=== PATIENT | female | born 1945 | race African-American/Black ===

== ENCOUNTER 2019-02-27 08:31 | Emergency (ER) | payer MEDICARE, MEDICAID ==
[~2019-02-27] VITALS: Ht 165.1 cm; Wt 58.0 kg
[~2019-02-27 08:31] MED LIST: ALLO100T PO; AMLO1CAP2 PO; ASPI-1393 PO; COLC0.6T66 PO; FISH PO; FOLI-43 PO; LORA-250 PO; MECL12.584 PO; SUCR1TAB PO; VIC PO
[2019-02-27 09:24] LABS: BASOPHILS % 1.2 % (0.0-2.0); EOSINOPHILS % 3.2 % (0.0-5.0); HEMATOCRIT. 40.2 % (36.0-48.0); HEMOGLOBIN. 13.3 g/dL (12.0-16.0); LYMPHOCYTES % 13.7 % (20.0-50.0); MEAN CORPUSCULAR HEMOGLOBIN 30.9 pg (28.0-32.0); MEAN CORPUSCULAR VOLUME 93.2 fL (81.0-99.0); MEAN PLATELET VOLUME 7.1 fl (7.4-10.4); MONOCYTES % 4.5 % (2.0-8.0); NEUTROPHILS % 77.4 % (40.0-76.0); PLATELET 305 x1000/uL (130-400); RED BLOOD CELL COUNT 4.32 mill/uL (4.2-5.4); RED CELL DISTRIBUTION WIDTH 14.2 % (11.6-14.6)
[2019-02-27 09:25] LABS: CHLORIDE 113 mEq/L (98-107)
[2019-02-27] MEDS ORDERED: LORAZEPAM 1MG TABLET PO ONE (10:00)
[2019-02-27 12:00] VITALS: BP 117/80
== END 2019-02-27 12:00 | disposition home or self-care (01) ==
LOC: ER 08:31
DX: B34.9 Viral infection, unspecified (principal); F41.9 Anxiety disorder, unspecified; J44.9 Chronic obstructive pulmonary disease, unspecified; I10 Essential (primary) hypertension; K21.9 Gastro-esophageal reflux disease without esophagitis; D64.9 Anemia, unspecified; Z79.899 Other long term (current) drug therapy; Z88.6 Allergy status to analgesic agent; Z79.82 Long term (current) use of aspirin
CPT/HCPCS: 36415; 71045; 83880; 84484; 93005; 99284

== ENCOUNTER → 2019-08-28 | Day surgery (SDC) | payer MEDICARE, MEDICAID ==
[~2019-08-28] VITALS: Ht 160 cm; Wt 49.9 kg
[~2019-08-28] MED LIST changes: +ALPR2TAB2 PO; +AMYL1CAP61 PO; -ASPI-1393 PO; +ASPI-1497 PO; +BUPIVACAINE HCL 0.5% (5MG/ML) 50ML ONE; -COLC0.6T66 PO; +DEXL60CA3 PO; -FISH PO; +HYDR-3280 PO; +INDOCYANINE GREEN 25 MG VIAL IV ONE; +LACTATED RINGERS 1,000 ML IV SCH; +LEVOFLOXACIN 500MG PREMIX 0 ML IV ONE; +LINA145C PO; -LORA-250 PO; +MECL-183 PO; -MECL12.584 PO; +METRONIDAZOLE 500 MG PREMIX 0 ML IV ONE; +ONDANSETRON HCL 4MG/2ML INJ IV ONE; -SUCR1TAB PO; -VIC PO
== END | disposition home or self-care (01) ==
LOC: OR 05:25
PROVIDERS: ATTEND Surgery
DX: J44.9 Chronic obstructive pulmonary disease, unspecified (principal); Z53.8 Procedure and treatment not carried out for other reasons; K58.9 Irritable bowel syndrome, unspecified; E78.00 Pure hypercholesterolemia, unspecified; F41.9 Anxiety disorder, unspecified; K21.9 Gastro-esophageal reflux disease without esophagitis; I11.0 Hypertensive heart disease with heart failure; I50.9 Heart failure, unspecified; E11.9 Type 2 diabetes mellitus without complications; Z79.899 Other long term (current) drug therapy; Z85.9 Personal history of malignant neoplasm, unspecified; Z88.5 Allergy status to narcotic agent; Z88.8 Allergy status to other drugs, medicaments and biological substances; Z79.82 Long term (current) use of aspirin; Z90.710 Acquired absence of both cervix and uterus; Z98.890 Other specified postprocedural states; Z72.89 Other problems related to lifestyle
CPT/HCPCS: 36415; 80051; 86850; 86900; 86901; J2405; J1956; J3490; Q9957

== ENCOUNTER → 2019-10-20 | Outpatient (CLI) | payer MEDICARE, MEDICAID ==
[~2019-10-20] MED LIST changes: -BUPIVACAINE HCL 0.5% (5MG/ML) 50ML ONE; -INDOCYANINE GREEN 25 MG VIAL IV ONE; -LACTATED RINGERS 1,000 ML IV SCH; -LEVOFLOXACIN 500MG PREMIX 0 ML IV ONE; -METRONIDAZOLE 500 MG PREMIX 0 ML IV ONE; -ONDANSETRON HCL 4MG/2ML INJ IV ONE; +UMEC1DIS IH
== END | disposition home or self-care (01) ==
LOC: LAB 11:57
PROVIDERS: ATTEND Surgery
DX: Z01.818 Encounter for other preprocedural examination (principal); Z11.59 Encounter for screening for other viral diseases
CPT/HCPCS: U0003-CS

== ENCOUNTER 2019-10-24 05:38 | Inpatient (IN) | payer MEDICARE, MEDICAID ==
[~2019-10-24] VITALS: Ht 160 cm; Wt 49.0 kg
[~2019-10-24 05:38] MED LIST changes: -UMEC1DIS IH
[2019-10-24] MEDS ORDERED: INDOCYANINE GREEN 25 MG VIAL IV ONE (06:22)
[2019-10-24] MEDS ORDERED: LEVOFLOXACIN 500MG PREMIX 100 ML IV ONE (06:23)
[2019-10-24] MEDS ORDERED: BUPIVACAINE HCL 0.5% (5MG/ML) 50ML ONE (06:23)
[2019-10-24] MEDS ORDERED: METRONIDAZOLE 500 MG PREMIX 100 ML IV ONE (06:23)
[2019-10-24] MEDS ORDERED: BUPIVACAINE HCL/PF 0.5% (5MG/ML) 10ML ONE (06:23)
[2019-10-24] MEDS ORDERED: SKIN ADHESIVE 0.7 GM EA TOP ONE (06:29)
[2019-10-24] MEDS ORDERED: LACTATED RINGERS 1,000 ML IV SCH (06:30)
[2019-10-24] MEDS ORDERED: FENTANYL CITRATE/PF 50MCG/ML 2ML VIAL ONE (07:14)
[2019-10-24] MEDS ORDERED: MIDAZOLAM HCL 2 MG/2 ML VIAL ONE (07:15)
[2019-10-24] MEDS ORDERED: LIDOCAINE HCL/PF 1% 10 MG/ML 5ML VIAL ONE (07:15)
[2019-10-24] MEDS ORDERED: PROPOFOL 200MG/20ML VIAL IV ONE (07:15)
[2019-10-24] MEDS ORDERED: ROCURONIUM BROMIDE 10MG/ML VIAL 5ML IV ONE ×2 (07:15→09:08)
[2019-10-24] MEDS ORDERED: DEXT 5%/0.45% NACL KCL 20MEQ/L 1,000 ML IV SCH (07:39)
[2019-10-24] MEDS ORDERED: UMEC1DIS IH (07:43)
[2019-10-24] MEDS ORDERED: METRONIDAZOLE 500 MG PREMIX 100 ML IV SCH (07:45)
[2019-10-24] MEDS ORDERED: MORPHINE SULFATE 4 MG/ML CPJ (NOT FOR IM USE) IV PRN (07:45)
[2019-10-24] MEDS ORDERED: MORPHINE SULFATE 2 MG/ML CPJ (NOT FOR IM USE) IV PRN (07:45)
[2019-10-24] MEDS ORDERED: ACETAMINOPHEN 650MG SUPP PR PRN ×2 (07:45)
[2019-10-24] MEDS ORDERED: LEVOFLOXACIN 500MG PREMIX 100 ML IV SCH (07:45)
[2019-10-24] MEDS ORDERED: ONDANSETRON HCL 4MG/2ML INJ IV PRN ×2 (07:45→11:00)
[2019-10-24] MEDS ORDERED: HYDROMORPHONE HCL/PF 2MG/ML (OR) ONE (08:10)
[2019-10-24] MEDS ORDERED: FAMOTIDINE 20MG/2ML VIAL IV SCH (09:00)
[2019-10-24] MEDS ORDERED: NEOSTIGMINE METHYLSULFATE 1MG/ML 10 ML VIAL ONE (09:24)
[2019-10-24] MEDS ORDERED: GLYCOPYRROLATE 0.2 MG/ML 2ML VIAL ONE (09:24)
[2019-10-24] MEDS ORDERED: DIPHENHYDRAMINE INJ IV PRN (10:15)
[2019-10-24] MEDS ORDERED: NALOXONE INJ IV PRN (10:15)
[2019-10-24] MEDS: ONDANSETRON INJ IV PRN ×2 (10:22→15:50)
[2019-10-24] MEDS: BUPIVACAINE HCL 0.5% 290 ML in ON-Q PM015 DRUG DELIV DEVICE 1 EA IR SCH (10:30)
[2019-10-24] MEDS: HYDROMORPHONE PCA 10MG/50ML IV PRN (10:59)
[2019-10-24] MEDS ORDERED: FENTANYL CITRATE/PF 50MCG/ML 2ML VIAL IV PRN (11:00)
[2019-10-24 12:00] VITALS: BP 128/71
[2019-10-24 12:10] VITALS: BP 128/71
[2019-10-24] MEDS: METRONIDAZOLE 500 MG PREMIX 100 ML IV SCH ×2 (13:48→21:48)
[2019-10-24] MEDS: DEXT 5%/0.45% NACL KCL 20MEQ/L 1,000 ML IV SCH (14:09)
[2019-10-24 16:00] VITALS: BP 148/81
[2019-10-24] MEDS ORDERED: PNEUMOCOCCAL 23-VAL P-SAC VAC 0.5 ML IM ONE (16:00)
[2019-10-24] MEDS ORDERED: HYDRALAZINE 10 MG in SODIUM CHLORIDE 0.9% 49.5 ML IV PRN (16:30)
[2019-10-24 17:17] LABS: CLARITY URINE CLEAR (CLEAR); COLOR URINE YELLOW (YELLOW); KETONES URINE TRACE (NEGATIVE); LEUKOCYTE ESTERASE URINE NEGATIVE (NEGATIVE); NITRITE URINE NEGATIVE (NEGATIVE); OCCULT BLOOD URINE 3+ (NEGATIVE); PROTEIN URINE TRACE (NEGATIVE); SPECIFIC GRAVITY URINE 1.014 (1.005-1.030); UROBILINOGEN URINE 0.2 E.U./dL (0.2-1.0)
[2019-10-24 18:10] VITALS: BP 148/81
[2019-10-24 20:00] VITALS: BP 124/70
[2019-10-24] MEDS ORDERED: LORAZEPAM 2MG/ML CPJ IV PRN (21:00)
[2019-10-25] VITALS: BP 138/63
[2019-10-25] MEDS: DEXT 5%/0.45% NACL KCL 20MEQ/L 1,000 ML IV SCH ×3 (00:32→21:12)
[2019-10-25 04:00] VITALS: BP 136/74
[2019-10-25] MEDS: METRONIDAZOLE 500 MG PREMIX 100 ML IV SCH (05:15)
[2019-10-25 05:18] LABS: HEMATOCRIT 30.9 % (36.0-48.0); HEMOGLOBIN 10.7 g/dL (12.0-16.0); MEAN CORPUSCULAR HEMOGLOBIN 31.1 pg (28.0-32.0); MEAN CORPUSCULAR VOLUME 90.1 fL (81.0-99.0); PLATELET 221 x1000/uL (130-400); RED BLOOD CELL COUNT 3.43 mill/uL (4.2-5.4); RED CELL DISTRIBUTION WIDTH 14.5 % (11.6-14.6)
[2019-10-25 05:26] LABS: CHLORIDE 109 mEq/L (98-107)
[2019-10-25] MEDS ORDERED: LEVOFLOXACIN 500MG PREMIX 100 ML IV SCH (06:00)
[2019-10-25 08:00] VITALS: BP 125/59
[2019-10-25] MEDS: FAMOTIDINE 20MG/2ML VIAL IV SCH (08:25)
[2019-10-25] MEDS: BUPIVACAINE HCL 0.5% 290 ML in ON-Q PM015 DRUG DELIV DEVICE 1 EA IR SCH (09:34)
[2019-10-25] MEDS: ALBUTEROL (0.083%) 2.5MG/3ML NEB HHN PRN ×2 (09:54→14:32)
[2019-10-25] MEDS: LORAZEPAM 2MG/ML CPJ IV PRN ×3 (10:31→22:51)
[2019-10-25 12:00] VITALS: BP 130/65
[2019-10-25 16:00] VITALS: BP 135/75
[2019-10-25 20:00] VITALS: BP 160/78
[2019-10-25] MEDS: IPRATROPIUM/ALBUTEROL 0.5-3(2.5)MG/3ML NEB HHN SCH (21:52)
[2019-10-26] VITALS (7 sets, daily range): BP systolic 139–157; BP diastolic 49–81
[2019-10-26] MEDS: IPRATROPIUM/ALBUTEROL 0.5-3(2.5)MG/3ML NEB HHN SCH ×4 (00:50→20:48)
[2019-10-26] MEDS: DEXT 5%/0.45% NACL KCL 20MEQ/L 1,000 ML IV SCH ×2 (06:06→17:00)
[2019-10-26] MEDS: LORAZEPAM 2MG/ML CPJ IV PRN ×2 (06:10→18:09)
[2019-10-26] MEDS: FAMOTIDINE 20MG/2ML VIAL IV SCH (09:25)
[2019-10-26] MEDS: BUPIVACAINE HCL 0.5% 290 ML in ON-Q PM015 DRUG DELIV DEVICE 1 EA IR SCH (09:30)
[2019-10-27] VITALS: BP 127/70
[2019-10-27] MEDS: LORAZEPAM 2MG/ML CPJ IV PRN ×4 (00:26→18:28)
[2019-10-27] MEDS: IPRATROPIUM/ALBUTEROL 0.5-3(2.5)MG/3ML NEB HHN SCH ×4 (02:16→21:39)
[2019-10-27 04:00] VITALS: BP 132/75
[2019-10-27] MEDS: DEXT 5%/0.45% NACL KCL 20MEQ/L 1,000 ML IV SCH ×2 (04:33→17:38)
[2019-10-27 08:00] VITALS: BP 147/88
[2019-10-27] MEDS: FAMOTIDINE 20MG/2ML VIAL IV SCH (09:37)
[2019-10-27 11:15] LABS: HEMATOCRIT. 34.2 % (36.0-48.0); HEMOGLOBIN. 11.8 g/dL (12.0-16.0); MEAN CORPUSCULAR HEMOGLOBIN 31.2 pg (28.0-32.0); MEAN CORPUSCULAR VOLUME 90.5 fL (81.0-99.0); MEAN PLATELET VOLUME 6.7 fl (7.4-10.4); PLATELET 267 x1000/uL (130-400); RED BLOOD CELL COUNT 3.78 mill/uL (4.2-5.4); RED CELL DISTRIBUTION WIDTH 14.3 % (11.6-14.6)
[2019-10-27 11:24] LABS: CHLORIDE 104 mEq/L (98-107)
[2019-10-27 12:00] VITALS: BP 164/91
[2019-10-27 14:23] LABS: PLATELET ESTIMATE NORMAL
[2019-10-27 16:00] VITALS: BP 138/83
[2019-10-27] MEDS ORDERED: PANTOPRAZOLE SODIUM 40 MG/VIAL IV NR (19:00)
[2019-10-27 20:00] VITALS: BP 153/94
[2019-10-28] VITALS: BP 141/87
[2019-10-28] MEDS: DEXT 5%/0.45% NACL KCL 20MEQ/L 1,000 ML IV SCH ×2 (01:23→11:43)
[2019-10-28 04:00] VITALS: BP_SYST 132; BP_SYST 99; BP_DIAS 50; BP_DIAS 84
[2019-10-28] MEDS: FAMOTIDINE 20MG/2ML VIAL IV SCH (08:25)
[2019-10-28] MEDS: IPRATROPIUM/ALBUTEROL 0.5-3(2.5)MG/3ML NEB HHN SCH ×2 (09:35→21:36)
[2019-10-28 12:00] VITALS: BP 150/91
[2019-10-28] MEDS ORDERED: POLYETHYLENE GLYCOL 3350 (17GM) 1 DOSE PACK PO SCH (13:15)
[2019-10-28 16:00] VITALS: BP 130/75
[2019-10-28 20:00] VITALS: BP 110/64
[2019-10-28] MEDS: HYDROMORPHONE PCA 10MG/50ML IV PRN (23:05)
[2019-10-29] VITALS: BP 113/58
[2019-10-29] MEDS: IPRATROPIUM/ALBUTEROL 0.5-3(2.5)MG/3ML NEB HHN SCH ×4 (02:39→20:55)
[2019-10-29 04:00] VITALS: BP 119/64
[2019-10-29] MEDS: DEXT 5%/0.45% NACL KCL 20MEQ/L 1,000 ML IV SCH ×2 (05:34→11:24)
[2019-10-29 08:00] VITALS: BP 115/69
[2019-10-29] MEDS ORDERED: BISACODYL 10MG SUPP PR NR ×2 (08:00→14:00)
[2019-10-29] MEDS: FAMOTIDINE 20MG/2ML VIAL IV SCH (09:14)
[2019-10-29 12:00] VITALS: BP 110/61
[2019-10-29 12:03] LABS: HEMATOCRIT 29.4 % (36.0-48.0)
[2019-10-29 16:00] VITALS: BP 125/62
[2019-10-29 20:00] VITALS: BP 121/64
[2019-10-29] MEDS ORDERED: LORAZEPAM 0.5MG TABLET PO PRN (21:00)
[2019-10-30] VITALS: BP 131/64
[2019-10-30] MEDS: DEXT 5%/0.45% NACL KCL 20MEQ/L 1,000 ML IV SCH ×2 (01:13→17:09)
[2019-10-30] MEDS: IPRATROPIUM/ALBUTEROL 0.5-3(2.5)MG/3ML NEB HHN SCH ×4 (01:25→22:12)
[2019-10-30 04:00] VITALS: BP 109/67
[2019-10-30 08:00] VITALS: BP 126/74
[2019-10-30] MEDS: FAMOTIDINE 20MG/2ML VIAL IV SCH (08:44)
[2019-10-30 12:00] VITALS: BP 114/68
[2019-10-30 20:00] VITALS: BP 127/73
[2019-10-31] VITALS: BP 128/79
[2019-10-31 04:00] VITALS: BP 123/70
[2019-10-31] MEDS: DEXT 5%/0.45% NACL KCL 20MEQ/L 1,000 ML IV SCH ×3 (04:07→23:23)
[2019-10-31 08:00] VITALS: BP 118/70
[2019-10-31] MEDS: IPRATROPIUM/ALBUTEROL 0.5-3(2.5)MG/3ML NEB HHN SCH ×3 (08:49→21:27)
[2019-10-31] MEDS: FAMOTIDINE 20MG/2ML VIAL IV SCH (10:12)
[2019-10-31 12:00] VITALS: BP 141/80
[2019-10-31 16:00] VITALS: BP 118/67
[2019-10-31 20:00] VITALS: BP 114/69
[2019-11-01] VITALS: BP 114/53
[2019-11-01] MEDS: IPRATROPIUM/ALBUTEROL 0.5-3(2.5)MG/3ML NEB HHN SCH ×3 (01:31→15:25)
[2019-11-01 04:00] VITALS: BP 107/53
[2019-11-01 08:00] VITALS: BP 129/76
[2019-11-01] MEDS: FAMOTIDINE 20MG/2ML VIAL IV SCH (08:23)
[2019-11-01 12:00] VITALS: BP 103/75
[2019-11-01 15:39] VITALS: BP 103/75
== END 2019-11-01 16:50 | disposition home health service (06) | DRG 330 ==
LOC: OR 05:38 → 6EST 05:39
PROVIDERS: ADMIT Surgery; ATTEND Surgery
PROC: 0DB80ZZ Excision of Small Intestine, Open Approach (ICD-10-PCS; principal; 2019-10-24)
PROC: 0DQP0ZZ Repair Rectum, Open Approach (ICD-10-PCS; 2019-10-24)
PROC: 8E0W4CZ Robotic Assisted Procedure of Trunk Region, Percutaneous Endoscopic Approach (ICD-10-PCS; 2019-10-24)
DX: K62.3 Rectal prolapse (principal); E44.1 Mild protein-calorie malnutrition; K56.7 Ileus, unspecified; Z68.1 Body mass index [BMI] 19.9 or less, adult; K55.9 Vascular disorder of intestine, unspecified; K66.0 Peritoneal adhesions (postprocedural) (postinfection); I10 Essential (primary) hypertension; F41.9 Anxiety disorder, unspecified; J44.9 Chronic obstructive pulmonary disease, unspecified; M10.9 Gout, unspecified; J30.9 Allergic rhinitis, unspecified; M54.5 Low back pain; G89.29 Other chronic pain; M54.2 Cervicalgia; M54.9 Dorsalgia, unspecified; R31.9 Hematuria, unspecified; Z53.31 Laparoscopic surgical procedure converted to open procedure; Z87.891 Personal history of nicotine dependence; Z82.49 Family history of ischemic heart disease and other diseases of the circulatory system; Z81.8 Family history of other mental and behavioral disorders; Z88.5 Allergy status to narcotic agent; Z91.011 Allergy to milk products
CPT/HCPCS: 36415; 80048; 80053; 81003; 85014; 85018; 85025; 85027; 86850; 86900; 88307; 97116; 97162; 97530; C9113; J0360; J1170; J1956; J2060; J2250; J2270; J2405; J2704; J2710; J3010; J3490; Q9957

== ENCOUNTER 2019-11-05 11:27 | Emergency (ER) | payer MEDICARE, MEDICAID ==
[~2019-11-05] VITALS: Ht 160 cm; Wt 57.0 kg
[~2019-11-05 11:27] MED LIST changes: -ASPI-1497 PO; +UMEC1DIS IH
[2019-11-05] MEDS ORDERED: ONDANSETRON HCL 4MG/2ML INJ IV STA (12:29)
[2019-11-05] MEDS ORDERED: SODIUM CHLORIDE 0.9% 1,000 ML IV ONE ×2 (12:29→15:20)
[2019-11-05] MEDS ORDERED: ACETAMINOPHEN 325MG TABLET PO ONE (12:30)
[2019-11-05 12:39] LABS: HEMATOCRIT. 26.8 % (36.0-48.0); HEMOGLOBIN. 9.2 g/dL (12.0-16.0); MEAN CORPUSCULAR HEMOGLOBIN 31.1 pg (28.0-32.0); MEAN CORPUSCULAR VOLUME 90.5 fL (81.0-99.0); PLATELET 538 x1000/uL (130-400); RED BLOOD CELL COUNT 2.96 mill/uL (4.2-5.4); RED CELL DISTRIBUTION WIDTH 14.2 % (11.6-14.6)
[2019-11-05 12:42] LABS: CHLORIDE 103 mEq/L (98-107)
[2019-11-05 12:46] LABS: CLARITY URINE CLEAR (CLEAR); COLOR URINE YELLOW (YELLOW); KETONES URINE NEGATIVE (NEGATIVE); LEUKOCYTE ESTERASE URINE TRACE (NEGATIVE); NITRITE URINE NEGATIVE (NEGATIVE); OCCULT BLOOD URINE NEGATIVE (NEGATIVE); PH URINE 5.5 (4.5-8.0); PROTEIN URINE NEGATIVE (NEGATIVE); SPECIFIC GRAVITY URINE 1.008 (1.005-1.030); UROBILINOGEN URINE 0.2 E.U./dL (0.2-1.0)
[2019-11-05 12:52] LABS: INR 1.1; PARTIAL THROMBOPLASTIN TIME 26.8 sec (23.4-31.0)
[2019-11-05 13:18] LABS: PLATELET ESTIMATE INCREASED
[2019-11-05] MEDS ORDERED: IOHEXOL-300 100 ML BOTTLE ONE (13:36)
[2019-11-05] MEDS ORDERED: LEVOFLOXACIN 250MG TABLET PO ONE (14:30)
[2019-11-05 15:58] VITALS: BP 111/46
== END 2019-11-05 16:18 | disposition home or self-care (01) ==
LOC: ER 11:39
DX: R10.9 Unspecified abdominal pain (principal); D64.9 Anemia, unspecified; F41.9 Anxiety disorder, unspecified; J44.9 Chronic obstructive pulmonary disease, unspecified; K21.9 Gastro-esophageal reflux disease without esophagitis; I10 Essential (primary) hypertension; Z98.890 Other specified postprocedural states; Z79.899 Other long term (current) drug therapy
CPT/HCPCS: 36415; 71045; 74177; 80053; 81003; 83690; 85025; 85610; 85730; 86850; 86900; 86901; 93005; 96374; 99285; J2405; J7030; Q9967

== ENCOUNTER 2019-11-13 17:53 | Emergency (ER) | payer MEDICARE, MEDICAID ==
[~2019-11-13] VITALS: Ht 162.6 cm; Wt 60.0 kg
[2019-11-13 21:53] LABS: HEMATOCRIT. 27.9 % (36.0-48.0); HEMOGLOBIN. 9.1 g/dL (12.0-16.0); MEAN CORPUSCULAR HEMOGLOBIN 29.1 pg (28.0-32.0); MEAN PLATELET VOLUME 6.4 fl (7.4-10.4); PLATELET 467 x1000/uL (130-400); RED BLOOD CELL COUNT 3.13 mill/uL (4.2-5.4); RED CELL DISTRIBUTION WIDTH 15.1 % (11.6-14.6)
[2019-11-13 21:56] LABS: CHLORIDE 105 mEq/L (98-107)
[2019-11-13 21:59] LABS: INR 1.2; PROTHROMBIN TIME 12.7 sec (9.6-11.0)
[2019-11-13 22:16] LABS: PLATELET ESTIMATE SLIGHTLY INCREASED
[2019-11-13] MEDS ORDERED: FENTANYL CITRATE/PF 50MCG/ML 2ML VIAL IV ONE (22:30)
[2019-11-14] MEDS ORDERED: LORAZEPAM 0.5MG TABLET PO ONE (00:15)
[2019-11-14 00:49] VITALS: BP 112/62
== END 2019-11-14 00:50 | disposition home or self-care (01) ==
LOC: ER 17:53
DX: K59.00 Constipation, unspecified (principal); R10.9 Unspecified abdominal pain; D64.9 Anemia, unspecified; F41.9 Anxiety disorder, unspecified; J44.9 Chronic obstructive pulmonary disease, unspecified; K21.9 Gastro-esophageal reflux disease without esophagitis; I10 Essential (primary) hypertension; Z79.899 Other long term (current) drug therapy; Z88.6 Allergy status to analgesic agent
CPT/HCPCS: 36415; 71045; 74176; 80053; 83605; 83690; 85025; 85610; 87040; 96374; 99285; J3010

== ENCOUNTER 2021-03-30 14:20 | Emergency (ER) | payer MEDICARE, MEDICAID ==
[~2021-03-30] VITALS: Ht 160 cm; Wt 63.0 kg
[~2021-03-30 14:20] MED LIST changes: -HYDR-3280 PO; +HYDR-4350 PO; -MECL-183 PO; +MECL-217 PO
[2021-03-30 14:26] VITALS: BP 147/69
== END 2021-03-30 16:47 | disposition left against medical advice (07) ==
LOC: ER 14:20
DX: R07.89 Other chest pain (principal); Z53.21 Procedure and treatment not carried out due to patient leaving prior to being seen by health care provider
CPT/HCPCS: 93005

== ENCOUNTER 2022-01-19 09:46 | Emergency (ER) | payer MEDICARE, MEDICAID ==
[~2022-01-19] VITALS: Ht 160 cm; Wt 59.0 kg
[2022-01-19] MEDS ORDERED: ONDANSETRON HCL 4MG/2ML INJ IV STA (10:02)
[2022-01-19] MEDS ORDERED: MAGNESIUM/ALUMINUM HYDROXIDE/SIMETHICONE 30ML UDC PO ONE (10:15)
[2022-01-19] MEDS ORDERED: VISCOUS LIDOCAINE 2% 15 ML UDC PO ONE (10:15)
[2022-01-19] MEDS ORDERED: DICYCLOMINE 10 MG/5 ML ORAL SYR PO ONE (10:15)
[2022-01-19 10:55] LABS: BASOPHILS % 1.3 % (0.0-2.0); EOSINOPHILS % 5.1 % (0.0-5.0); HEMATOCRIT. 36.6 % (36.0-48.0); HEMOGLOBIN. 11.9 g/dL (12.0-16.0); LYMPHOCYTES % 11.1 % (20.0-50.0); MEAN CORPUSCULAR HEMOGLOBIN 28.8 pg (28.0-32.0); MEAN CORPUSCULAR VOLUME 88.8 fL (81.0-99.0); MEAN PLATELET VOLUME 7.4 fl (7.4-10.4); MONOCYTES % 7.4 % (2.0-8.0); NEUTROPHILS % 75.1 % (40.0-76.0); PLATELET 262 x1000/uL (130-400); RED BLOOD CELL COUNT 4.12 mill/uL (4.2-5.4); RED CELL DISTRIBUTION WIDTH 14.8 % (11.6-14.6)
[2022-01-19 11:00] LABS: CHLORIDE 114 mEq/L (98-107)
[2022-01-19] MEDS ORDERED: OMEP20TA23 PO (12:58)
[2022-01-19 13:02] VITALS: BP 146/72
== END 2022-01-19 13:16 | disposition home or self-care (01) ==
LOC: ER 09:46
DX: K21.9 Gastro-esophageal reflux disease without esophagitis (principal); I49.8 Other specified cardiac arrhythmias; I10 Essential (primary) hypertension; Z87.19 Personal history of other diseases of the digestive system
CPT/HCPCS: 36415; 71045; 80053; 83690; 83880; 84484; 85025; 93005; 96374; 99285; J2405

== ENCOUNTER 2022-03-27 16:43 | Inpatient (IN) | payer MEDICARE, MEDICAID ==
[~2022-03-27] VITALS: Ht 160 cm; Wt 65.8 kg
[~2022-03-27 16:43] MED LIST changes: +OMEP20TA23 PO
[2022-03-27] MEDS ORDERED: ONDANSETRON HCL 4MG/2ML INJ IV ONE (17:45)
[2022-03-27] MEDS ORDERED: VANCOMYCIN 1G PREMIX 200 ML IV ONE (17:45)
[2022-03-27] MEDS ORDERED: KETOROLAC 15MG/ML VIAL IV ONE (17:45)
[2022-03-27] MEDS ORDERED: PIPERACILLIN/TAZ 3.375G PREMIX 50 ML IV ONE (17:45)
[2022-03-27] MEDS ORDERED: SODIUM CHLORIDE 0.9% 1000ML BAG (SEPSIS BOLUS) IV ONE (17:45)
[2022-03-27 17:58] LABS: BASOPHILS % 0.2 % (0.0-2.0); EOSINOPHILS % 0.3 % (0.0-5.0); HEMATOCRIT. 46.2 % (36.0-48.0); LYMPHOCYTES % 8.1 % (20.0-50.0); MEAN CORPUSCULAR HEMOGLOBIN 27.6 pg (28.0-32.0); MEAN PLATELET VOLUME 7.2 fl (7.4-10.4); MONOCYTES % 6.2 % (2.0-8.0); NEUTROPHILS % 85.2 % (40.0-76.0); PLATELET 414 x1000/uL (130-400); RED BLOOD CELL COUNT 5.43 mill/uL (4.2-5.4); RED CELL DISTRIBUTION WIDTH 16.9 % (11.6-14.6)
[2022-03-27 18:08] LABS: CHLORIDE 77 mEq/L (98-107)
[2022-03-27 18:28] LABS: ETHANOL BLOOD < 10 mg/dL
[2022-03-27 19:53] LABS: INR 1.2; PROTHROMBIN TIME 12.4 sec (9.6-11.0)
[2022-03-27] MEDS ORDERED: SODIUM CHLORIDE 0.9% 1,000 ML IV ONE (20:00)
[2022-03-27 20:56] LABS: CLARITY URINE CLEAR (CLEAR); COLOR URINE DARK YELLOW (YELLOW); KETONES URINE NEGATIVE (NEGATIVE); LEUKOCYTE ESTERASE URINE TRACE (NEGATIVE); NITRITE URINE NEGATIVE (NEGATIVE); OCCULT BLOOD URINE NEGATIVE (NEGATIVE); PH URINE 5.5 (4.5-8.0); PROTEIN URINE 4+ (NEGATIVE); SPECIFIC GRAVITY URINE 1.022 (1.005-1.030); UROBILINOGEN URINE 0.2 E.U./dL (0.2-1.0)
[2022-03-27 21:14] LABS: *AMPHETAMINES SCREEN URINE NEGATIVE (NEGATIVE); *BARBITURATES SCREEN URINE NEGATIVE (NEGATIVE); *BENZODIAZEPINES SCREEN URINE PRESUMTIVE POSITIVE (NEGATIVE); *COCAINE SCREEN URINE NEGATIVE (NEGATIVE); CANNABINOID URINE SCREEN NEGATIVE (NEGATIVE); METHADONE URINE SCREEN NEGATIVE (NEGATIVE); OPIATES URINE SCREEN PRESUMTIVE POSITIVE (NEGATIVE); PHENCYCLIDINE URINE SCREEN NEGATIVE (NEGATIVE)
[2022-03-27] MEDS ORDERED: DIPHENHYDRAMINE 50MG/ML VIAL IV NR (23:45)
[2022-03-28] VITALS (11 sets, daily range): BP systolic 83–104; BP diastolic 45–54
[2022-03-28] MEDS: IPRATROPIUM/ALBUTEROL 0.5-3(2.5)MG/3ML NEB HHN SCH (09:23)
[2022-03-28] MEDS ORDERED: ONDANSETRON 4MG ODT PO PRN (09:45)
[2022-03-28] MEDS ORDERED: SODIUM CHLORIDE 0.9% 1,000 ML IV ONE (10:00)
[2022-03-28] MEDS: ONDANSETRON HCL 4MG/2ML INJ IV PRN (10:10)
[2022-03-28] MEDS ORDERED: DEXT 5%/0.9% NACL 1,000 ML IV SCH (12:00)
[2022-03-28] MEDS: PANTOPRAZOLE SODIUM 40 MG/VIAL IV SCH (12:28)
[2022-03-28] MEDS ORDERED: KETOROLAC 30MG/ML VIAL IV PRN (13:30)
[2022-03-28] MEDS: LORAZEPAM 2MG/ML CPJ IV PRN (13:31)
[2022-03-28] MEDS ORDERED: NALOXONE HCL 0.4MG/ML VIAL IV PRN (18:00)
[2022-03-28] MEDS: SODIUM CHLORIDE 0.9% 1,000 ML IV SCH (18:02)
[2022-03-28] MEDS: PIPERACILLIN/TAZOBACTAM 3.375 G in DEXTROSE 5% WATER 50 ML IV SCH (20:01)
[2022-03-29] VITALS (13 sets, daily range): BP systolic 87–142; BP diastolic 47–73
[2022-03-29] MEDS: LORAZEPAM 2MG/ML CPJ IV PRN ×3 (01:02→18:42)
[2022-03-29] MEDS: SODIUM CHLORIDE 0.9% 1,000 ML IV SCH ×4 (01:07→23:52)
[2022-03-29] MEDS ORDERED: HYDROCODONE/ACETAMINOPHEN 10/325MG TABLET PO PRN (08:45)
[2022-03-29] MEDS: PANTOPRAZOLE SODIUM 40 MG/VIAL IV SCH (09:00)
[2022-03-29] MEDS: PIPERACILLIN/TAZOBACTAM 3.375 G in DEXTROSE 5% WATER 50 ML IV SCH ×2 (09:01→20:41)
[2022-03-29] MEDS: HYDROMORPHONE HCL/PF 2MG/ML CPJ IV PRN (09:02)
[2022-03-29] MEDS: ONDANSETRON HCL 4MG/2ML INJ IV PRN ×2 (11:48→16:50)
[2022-03-29] MEDS: IPRATROPIUM/ALBUTEROL 0.5-3(2.5)MG/3ML NEB HHN SCH ×3 (11:52→20:53)
[2022-03-29 12:55] LABS: BASOPHILS % 0.3 % (0.0-2.0); EOSINOPHILS % 2.1 % (0.0-5.0); HEMATOCRIT. 34.7 % (36.0-48.0); HEMOGLOBIN. 11.7 g/dL (12.0-16.0); LYMPHOCYTES % 7.8 % (20.0-50.0); MEAN CORPUSCULAR HEMOGLOBIN 28.5 pg (28.0-32.0); MEAN CORPUSCULAR VOLUME 84.4 fL (81.0-99.0); MEAN PLATELET VOLUME 7.1 fl (7.4-10.4); MONOCYTES % 8.4 % (2.0-8.0); NEUTROPHILS % 81.4 % (40.0-76.0); PLATELET 302 x1000/uL (130-400); RED BLOOD CELL COUNT 4.11 mill/uL (4.2-5.4); RED CELL DISTRIBUTION WIDTH 16.6 % (11.6-14.6)
[2022-03-29] MEDS ORDERED: POTASSIUM CHLORIDE 20MEQ/PACKET PO NR (14:15)
[2022-03-30] VITALS (13 sets, daily range): BP systolic 111–159; BP diastolic 61–91
[2022-03-30] MEDS: IPRATROPIUM/ALBUTEROL 0.5-3(2.5)MG/3ML NEB HHN SCH ×5 (01:01→21:05)
[2022-03-30] MEDS: LORAZEPAM 2MG/ML CPJ IV PRN ×3 (05:27→21:41)
[2022-03-30] MEDS: HYDROMORPHONE HCL/PF 2MG/ML CPJ IV PRN ×2 (05:27→13:51)
[2022-03-30] MEDS: SODIUM CHLORIDE 0.45% 1,000 ML IV SCH ×2 (06:05→16:33)
[2022-03-30 06:15] LABS: HEMATOCRIT. 36.5 % (36.0-48.0); HEMOGLOBIN. 12.1 g/dL (12.0-16.0); MEAN CORPUSCULAR HEMOGLOBIN 28.1 pg (28.0-32.0); MEAN CORPUSCULAR VOLUME 84.7 fL (81.0-99.0); MEAN PLATELET VOLUME 7.2 fl (7.4-10.4); PLATELET 329 x1000/uL (130-400); RED BLOOD CELL COUNT 4.31 mill/uL (4.2-5.4); RED CELL DISTRIBUTION WIDTH 16.6 % (11.6-14.6)
[2022-03-30] MEDS: PANTOPRAZOLE SODIUM 40 MG/VIAL IV SCH (08:45)
[2022-03-30] MEDS: PIPERACILLIN/TAZOBACTAM 3.375 G in DEXTROSE 5% WATER 50 ML IV SCH ×2 (08:46→21:41)
[2022-03-30 09:46] LABS: PHOSPHORUS 4.1 mg/dL (2.5-4.9)
[2022-03-30] MEDS: ONDANSETRON HCL 4MG/2ML INJ IV PRN ×2 (10:16→21:41)
[2022-03-30] MEDS ORDERED: KCL 20MEQ/100ML PREMIX 100 ML IV NR (13:30)
[2022-03-30 20:39] LABS: PLATELET ESTIMATE NORMAL
[2022-03-30] MEDS: FAMOTIDINE 20MG/2ML VIAL IV SCH (20:48)
[2022-03-31] VITALS (13 sets, daily range): BP systolic 142–174; BP diastolic 74–109
[2022-03-31] MEDS: IPRATROPIUM/ALBUTEROL 0.5-3(2.5)MG/3ML NEB HHN SCH ×6 (00:59→21:23)
[2022-03-31] MEDS: SODIUM CHLORIDE 0.45% 1,000 ML IV SCH ×3 (02:11→21:11)
[2022-03-31] MEDS: PIPERACILLIN/TAZOBACTAM 3.375 G in DEXTROSE 5% WATER 50 ML IV SCH ×2 (06:11→21:16)
[2022-03-31] MEDS: LORAZEPAM 2MG/ML CPJ IV PRN ×2 (06:11→15:44)
[2022-03-31] MEDS: ONDANSETRON HCL 4MG/2ML INJ IV PRN ×4 (06:14→21:16)
[2022-03-31] MEDS ORDERED: HYDRALAZINE 20MG/ML VIAL IV PRN (12:45)
[2022-03-31 12:58] LABS: HEMATOCRIT. 38.5 % (36.0-48.0); HEMOGLOBIN. 12.7 g/dL (12.0-16.0); PLATELET 360 x1000/uL (130-400); RED BLOOD CELL COUNT 4.53 mill/uL (4.2-5.4); RED CELL DISTRIBUTION WIDTH 16.5 % (11.6-14.6)
[2022-03-31 13:10] LABS: CHLORIDE 96 mEq/L (98-107)
[2022-03-31 13:34] LABS: PLATELET ESTIMATE NORMAL
[2022-03-31] MEDS: HYDROMORPHONE HCL/PF 2MG/ML CPJ IV PRN (20:10)
[2022-03-31] MEDS: FAMOTIDINE 20MG/2ML VIAL IV SCH (21:16)
[2022-04-01] VITALS: BP 110/79
[2022-04-01] MEDS: LORAZEPAM 2MG/ML CPJ IV PRN ×3 (00:06→20:45)
[2022-04-01] MEDS: IPRATROPIUM/ALBUTEROL 0.5-3(2.5)MG/3ML NEB HHN SCH ×5 (01:21→20:40)
[2022-04-01] MEDS: HYDROMORPHONE HCL/PF 2MG/ML CPJ IV PRN ×3 (02:03→16:35)
[2022-04-01 04:00] VITALS: BP 128/69
[2022-04-01] MEDS: ONDANSETRON HCL 4MG/2ML INJ IV PRN (04:28)
[2022-04-01] MEDS: PIPERACILLIN/TAZOBACTAM 3.375 G in DEXTROSE 5% WATER 50 ML IV SCH ×3 (05:27→20:45)
[2022-04-01] MEDS: SODIUM CHLORIDE 0.45% 1,000 ML IV SCH (06:59)
[2022-04-01 08:23] LABS: BASOPHILS % 0.4 % (0.0-2.0); EOSINOPHILS % 3.1 % (0.0-5.0); HEMATOCRIT. 32.6 % (36.0-48.0); HEMOGLOBIN. 10.7 g/dL (12.0-16.0); INR 1.2; LYMPHOCYTES % 8.5 % (20.0-50.0); MEAN CORPUSCULAR HEMOGLOBIN 28.2 pg (28.0-32.0); MEAN CORPUSCULAR VOLUME 85.5 fL (81.0-99.0); MEAN PLATELET VOLUME 7.1 fl (7.4-10.4); MONOCYTES % 12.2 % (2.0-8.0); NEUTROPHILS % 75.8 % (40.0-76.0); PLATELET 299 x1000/uL (130-400); PROTHROMBIN TIME 12.8 sec (9.6-11.0); RED BLOOD CELL COUNT 3.81 mill/uL (4.2-5.4); RED CELL DISTRIBUTION WIDTH 16.2 % (11.6-14.6)
[2022-04-01 08:27] LABS: CHLORIDE 100 mEq/L (98-107)
[2022-04-01] MEDS: DEXT 5%/0.45% NACL 1000ML 1,000 ML IV SCH ×2 (08:45→10:05)
[2022-04-01 09:00] VITALS: BP 149/72
[2022-04-01] MEDS ORDERED: SIMETHICONE 40 MG/0.6 ML 15ML ONE (10:33)
[2022-04-01] MEDS ORDERED: MIDAZOLAM HCL 5 MG/5 ML VIAL IV PRN (11:23)
[2022-04-01] MEDS ORDERED: FENTANYL CITRATE/PF 50MCG/ML 2ML VIAL IV PRN (11:23)
[2022-04-01] MEDS ORDERED: MIDAZOLAM HCL 5 MG/5 ML VIAL ONE (11:23)
[2022-04-01] MEDS ORDERED: FENTANYL CITRATE/PF 50MCG/ML 2ML VIAL ONE (11:23)
[2022-04-01 16:20] VITALS: BP 159/79
[2022-04-01 20:00] VITALS: BP 142/71
[2022-04-01] MEDS: FAMOTIDINE 20MG/2ML VIAL IV SCH (20:45)
[2022-04-02] VITALS: BP 133/67
[2022-04-02] MEDS: IPRATROPIUM/ALBUTEROL 0.5-3(2.5)MG/3ML NEB HHN SCH ×6 (00:12→22:10)
[2022-04-02] MEDS: LORAZEPAM 2MG/ML CPJ IV PRN ×4 (01:48→22:37)
[2022-04-02 04:00] VITALS: BP 140/65
[2022-04-02] MEDS: DEXT 5%/0.45% NACL 1000ML 1,000 ML IV SCH ×2 (04:45→23:29)
[2022-04-02] MEDS: ONDANSETRON HCL 4MG/2ML INJ IV PRN ×2 (05:46→11:31)
[2022-04-02] MEDS: PIPERACILLIN/TAZOBACTAM 3.375 G in DEXTROSE 5% WATER 50 ML IV SCH ×3 (05:46→21:27)
[2022-04-02 07:19] LABS: HEMATOCRIT. 32.4 % (36.0-48.0); HEMOGLOBIN. 10.7 g/dL (12.0-16.0); MEAN CORPUSCULAR HEMOGLOBIN 28.3 pg (28.0-32.0); MEAN CORPUSCULAR VOLUME 85.3 fL (81.0-99.0); MEAN PLATELET VOLUME 7.1 fl (7.4-10.4); PLATELET 286 x1000/uL (130-400)
[2022-04-02] MEDS ORDERED: DIATR MEGLU/DIATRIZOATE SOLN 120ML ONE (07:56)
[2022-04-02 08:00] VITALS: BP 154/78
[2022-04-02 10:37] LABS: CHLORIDE 106 mEq/L (98-107)
[2022-04-02 10:38] LABS: PLATELET ESTIMATE NORMAL
[2022-04-02 10:45] LABS: PHOSPHORUS 2.6 mg/dL (2.5-4.9)
[2022-04-02 12:00] VITALS: BP 161/80
[2022-04-02] MEDS: HYDROMORPHONE HCL/PF 2MG/ML CPJ IV PRN ×2 (13:10→21:27)
[2022-04-02] MEDS ORDERED: MAGNESIUM 1 G PREMIX 100 ML IV SCH (15:00)
[2022-04-02 16:00] VITALS: BP 135/70
[2022-04-02] MEDS: METOCLOPRAMIDE HCL 10MG/2ML VIAL IV SCH ×2 (18:16→23:29)
[2022-04-02 20:00] VITALS: BP 151/73
[2022-04-02] MEDS: FAMOTIDINE 20MG/2ML VIAL IV SCH (21:27)
[2022-04-03] VITALS: BP 147/70
[2022-04-03] MEDS: IPRATROPIUM/ALBUTEROL 0.5-3(2.5)MG/3ML NEB HHN SCH ×6 (00:46→21:23)
[2022-04-03 04:00] VITALS: BP 154/66
[2022-04-03] MEDS: METOCLOPRAMIDE HCL 10MG/2ML VIAL IV SCH ×4 (05:06→23:36)
[2022-04-03 08:01] LABS: CHLORIDE 107 mEq/L (98-107)
[2022-04-03 08:10] VITALS: BP 146/79
[2022-04-03 08:25] LABS: HEMATOCRIT. 33.8 % (36.0-48.0); HEMOGLOBIN. 10.9 g/dL (12.0-16.0); MEAN CORPUSCULAR HEMOGLOBIN 27.8 pg (28.0-32.0); MEAN CORPUSCULAR VOLUME 86.3 fL (81.0-99.0); MEAN PLATELET VOLUME 7.4 fl (7.4-10.4); PLATELET 290 x1000/uL (130-400); RED BLOOD CELL COUNT 3.92 mill/uL (4.2-5.4); RED CELL DISTRIBUTION WIDTH 16.2 % (11.6-14.6)
[2022-04-03] MEDS: HYDROMORPHONE HCL/PF 2MG/ML CPJ IV PRN ×2 (11:44→18:35)
[2022-04-03] MEDS: LORAZEPAM 2MG/ML CPJ IV PRN ×3 (12:32→23:37)
[2022-04-03 12:34] VITALS: BP 173/55
[2022-04-03 15:48] VITALS: BP 157/74
[2022-04-03 20:00] VITALS: BP_SYST 154; BP_DIAS 62; BP_DIAS 71
[2022-04-03] MEDS ORDERED: NALOXONE HCL 0.4MG/ML VIAL IV PRN (21:30)
[2022-04-03] MEDS: FAMOTIDINE 20MG/2ML VIAL IV SCH (23:37)
[2022-04-03] MEDS: ACETAMINOPHEN 650MG/20.3ML UDC PO PRN (23:37)
[2022-04-04] VITALS: BP 160/67
[2022-04-04] MEDS: HYDROMORPHONE HCL/PF 2MG/ML CPJ IV PRN ×3 (00:33→21:22)
[2022-04-04] MEDS: IPRATROPIUM/ALBUTEROL 0.5-3(2.5)MG/3ML NEB HHN SCH ×6 (00:52→20:01)
[2022-04-04 04:00] VITALS: BP 137/66
[2022-04-04] MEDS: LORAZEPAM 2MG/ML CPJ IV PRN ×3 (06:18→21:22)
[2022-04-04 08:00] VITALS: BP 136/60
[2022-04-04 10:37] LABS: HEMATOCRIT. 32.9 % (36.0-48.0); HEMOGLOBIN. 10.9 g/dL (12.0-16.0); MEAN CORPUSCULAR HEMOGLOBIN 28.2 pg (28.0-32.0); MEAN CORPUSCULAR VOLUME 85.3 fL (81.0-99.0); MEAN PLATELET VOLUME 7.4 fl (7.4-10.4); PLATELET 287 x1000/uL (130-400); RED BLOOD CELL COUNT 3.86 mill/uL (4.2-5.4); RED CELL DISTRIBUTION WIDTH 16.1 % (11.6-14.6)
[2022-04-04 11:06] LABS: CHLORIDE 100 mEq/L (98-107)
[2022-04-04 12:00] VITALS: BP 137/82
[2022-04-04] MEDS: METOCLOPRAMIDE HCL 10MG/2ML VIAL IV SCH ×3 (12:56→21:23)
[2022-04-04] MEDS ORDERED: POTASSIUM CHLORIDE 20MEQ TABLET SR PO NR (14:00)
[2022-04-04 14:29] LABS: PLATELET ESTIMATE NORMAL
[2022-04-04 15:02] LABS: PLATELET ESTIMATE NORMAL
[2022-04-04 16:00] VITALS: BP 114/60
[2022-04-04] MEDS: MAGNESIUM 1 G PREMIX 100 ML IV NR ×2 (17:07→21:24)
[2022-04-04] MEDS: DEXT 5%/0.45% NACL 1000ML 1,000 ML IV SCH (17:08)
[2022-04-04 20:00] VITALS: BP 137/49
[2022-04-04] MEDS: FAMOTIDINE 20MG/2ML VIAL IV SCH (21:23)
[2022-04-04 23:03] LABS: PHOSPHORUS 2.9 mg/dL (2.5-4.9)
[2022-04-05] VITALS: BP 150/76
[2022-04-05] MEDS: IPRATROPIUM/ALBUTEROL 0.5-3(2.5)MG/3ML NEB HHN SCH ×6 (00:08→21:20)
[2022-04-05 01:18] VITALS: BP 150/76
[2022-04-05] MEDS: METOCLOPRAMIDE HCL 10MG/2ML VIAL IV SCH ×2 (06:00→12:05)
[2022-04-05 08:00] VITALS: BP 154/68
[2022-04-05 08:13] LABS: HEMOGLOBIN. 9.7 g/dL (12.0-16.0); MEAN CORPUSCULAR HEMOGLOBIN 28.8 pg (28.0-32.0); MEAN CORPUSCULAR VOLUME 85.6 fL (81.0-99.0); MEAN PLATELET VOLUME 7.2 fl (7.4-10.4); PLATELET 252 x1000/uL (130-400); RED BLOOD CELL COUNT 3.39 mill/uL (4.2-5.4); RED CELL DISTRIBUTION WIDTH 15.9 % (11.6-14.6)
[2022-04-05 09:13] LABS: CHLORIDE 104 mEq/L (98-107)
[2022-04-05 10:33] LABS: PLATELET ESTIMATE NORMAL
[2022-04-05 12:00] VITALS: BP 154/68
[2022-04-05] MEDS: HYDROMORPHONE HCL/PF 2MG/ML CPJ IV PRN ×2 (12:04→17:06)
[2022-04-05] MEDS: DEXT 5%/0.45% NACL 1000ML 1,000 ML IV SCH (14:01)
[2022-04-05 16:00] VITALS: BP 141/72
[2022-04-05 20:00] VITALS: BP 111/78
[2022-04-05] MEDS: FAMOTIDINE 20MG TABLET PO SCH (20:44)
[2022-04-05] MEDS: ONDANSETRON HCL 4MG/2ML INJ IV PRN (21:13)
[2022-04-05] MEDS: LORAZEPAM 2MG/ML CPJ IV PRN (21:13)
[2022-04-06] VITALS: BP 151/71
[2022-04-06] MEDS: IPRATROPIUM/ALBUTEROL 0.5-3(2.5)MG/3ML NEB HHN SCH ×6 (00:27→20:39)
[2022-04-06] MEDS: METOCLOPRAMIDE HCL 10MG/2ML VIAL IV SCH ×5 (01:59→17:29)
[2022-04-06 04:00] VITALS: BP 150/71
[2022-04-06 07:07] LABS: BASOPHILS % 0.7 % (0.0-2.0); EOSINOPHILS % 2.7 % (0.0-5.0); HEMATOCRIT. 29.1 % (36.0-48.0); HEMOGLOBIN. 9.8 g/dL (12.0-16.0); LYMPHOCYTES % 7.2 % (20.0-50.0); MEAN CORPUSCULAR HEMOGLOBIN 28.6 pg (28.0-32.0); MEAN CORPUSCULAR VOLUME 85.1 fL (81.0-99.0); MEAN PLATELET VOLUME 7.5 fl (7.4-10.4); MONOCYTES % 7.4 % (2.0-8.0); PLATELET 269 x1000/uL (130-400); RED BLOOD CELL COUNT 3.42 mill/uL (4.2-5.4); RED CELL DISTRIBUTION WIDTH 15.6 % (11.6-14.6)
[2022-04-06 08:09] VITALS: BP 150/85
[2022-04-06] MEDS: ONDANSETRON HCL 4MG/2ML INJ IV PRN (08:20)
[2022-04-06] MEDS: HYDROMORPHONE HCL/PF 2MG/ML CPJ IV PRN ×2 (08:22→17:24)
[2022-04-06 11:51] VITALS: BP 138/75
[2022-04-06 12:05] LABS: CHLORIDE 104 mEq/L (98-107)
[2022-04-06] MEDS: HYDRALAZINE HCL 50MG TABLET PO SCH ×2 (14:35→21:56)
[2022-04-06] MEDS ORDERED: LORAZEPAM 2MG/ML CPJ IV PRN (15:30)
[2022-04-06 16:19] VITALS: BP 148/81
[2022-04-06 20:00] VITALS: BP 136/68
[2022-04-06] MEDS: FAMOTIDINE 20MG TABLET PO SCH (21:55)
[2022-04-07] VITALS: BP 109/49
[2022-04-07] MEDS: METOCLOPRAMIDE HCL 10MG/2ML VIAL IV SCH ×5 (00:21→23:41)
[2022-04-07] MEDS: IPRATROPIUM/ALBUTEROL 0.5-3(2.5)MG/3ML NEB HHN SCH ×6 (01:23→20:26)
[2022-04-07 04:00] VITALS: BP 125/60
[2022-04-07] MEDS: HYDRALAZINE HCL 50MG TABLET PO SCH ×3 (06:29→21:14)
[2022-04-07 07:27] LABS: HEMATOCRIT. 33.8 % (36.0-48.0); HEMOGLOBIN. 11.1 g/dL (12.0-16.0); MEAN CORPUSCULAR VOLUME 85.6 fL (81.0-99.0); MEAN PLATELET VOLUME 7.6 fl (7.4-10.4); PLATELET 347 x1000/uL (130-400); RED BLOOD CELL COUNT 3.95 mill/uL (4.2-5.4)
[2022-04-07 08:16] VITALS: BP 115/54
[2022-04-07 08:50] LABS: CHLORIDE 103 mEq/L (98-107)
[2022-04-07] MEDS: ACETAMINOPHEN 650MG/20.3ML UDC PO PRN (09:38)
[2022-04-07] MEDS ORDERED: TRAM50TA3 MT (11:34)
[2022-04-07] MEDS ORDERED: HYDR-4135 PO (11:34)
[2022-04-07 11:45] VITALS: BP 109/55
[2022-04-07 13:15] LABS: PLATELET ESTIMATE NORMAL
[2022-04-07] MEDS ORDERED: ALBU90AE INH (16:06)
[2022-04-07] MEDS ORDERED: GUAIFENESIN-DM 200MG-20MG/10ML UDC PO PRN (16:15)
[2022-04-07 16:19] VITALS: BP 103/53
[2022-04-07 20:00] VITALS: BP 117/62
[2022-04-07] MEDS: FAMOTIDINE 20MG TABLET PO SCH (21:14)
[2022-04-08] VITALS: BP 111/45
[2022-04-08 04:00] VITALS: BP 106/45
[2022-04-08] MEDS: IPRATROPIUM/ALBUTEROL 0.5-3(2.5)MG/3ML NEB HHN SCH ×4 (04:14→12:00)
[2022-04-08] MEDS: METOCLOPRAMIDE HCL 10MG/2ML VIAL IV SCH (05:56)
[2022-04-08] MEDS: HYDRALAZINE HCL 50MG TABLET PO SCH (05:57)
[2022-04-08 08:00] VITALS: BP 125/46
[2022-04-08] MEDS: ACETAMINOPHEN 650MG/20.3ML UDC PO PRN (10:02)
[2022-04-08] MEDS: ONDANSETRON HCL 4MG/2ML INJ IV PRN (10:09)
[2022-04-08 11:44] VITALS: BP 132/61
[2022-04-08 12:00] VITALS: BP 132/61
== END 2022-04-08 13:00 | disposition home health service (06) | DRG 389 ==
LOC: ER 16:43 → MICUSO 22:03 → EDBEDREQ 22:13 → 5EST 03-28 08:47 → 6WST 03-31 15:07
PROVIDERS: ADMIT Internal Medicine; ATTEND Internal Medicine
PROC: 0DH68UZ Insertion of Feeding Device into Stomach, Via Natural or Artificial Opening Endoscopic (ICD-10-PCS; principal; 2022-04-01)
DX: K56.50 Intestinal adhesions [bands], unspecified as to partial versus complete obstruction (principal); E87.1 Hypo-osmolality and hyponatremia; N17.9 Acute kidney failure, unspecified; K22.10 Ulcer of esophagus without bleeding; N13.9 Obstructive and reflux uropathy, unspecified; N32.0 Bladder-neck obstruction; Z20.822 Contact with and (suspected) exposure to COVID-19; K57.90 Diverticulosis of intestine, part unspecified, without perforation or abscess without bleeding; N81.9 Female genital prolapse, unspecified; D35.02 Benign neoplasm of left adrenal gland; K21.9 Gastro-esophageal reflux disease without esophagitis; J44.9 Chronic obstructive pulmonary disease, unspecified; E87.6 Hypokalemia; E86.1 Hypovolemia; I34.0 Nonrheumatic mitral (valve) insufficiency; K59.00 Constipation, unspecified; D64.9 Anemia, unspecified; I95.9 Hypotension, unspecified; M10.9 Gout, unspecified; I25.10 Atherosclerotic heart disease of native coronary artery without angina pectoris; N28.1 Cyst of kidney, acquired; K44.9 Diaphragmatic hernia without obstruction or gangrene; K31.89 Other diseases of stomach and duodenum; R80.9 Proteinuria, unspecified; I10 Essential (primary) hypertension; H91.90 Unspecified hearing loss, unspecified ear; Z88.8 Allergy status to other drugs, medicaments and biological substances; Z90.710 Acquired absence of both cervix and uterus; Z87.891 Personal history of nicotine dependence
CPT/HCPCS: 36415; 71045; 74018; 74176; 74250; 80048; 80053; 80061; 80305; 80320; 81003; 82533; 83605; 83735; 83880; 83930; 84100; 84145; 84443; 84484; 85025; 87426; 93005; 93306; 93970; 94640; 97116; 97162; 97166; 97530; 97535; 99291; C1893; C9113; C9803; J0360; J1170; J1200; J1885; J2060; J2250; J2405; J2543; J2765; J3010; J3370; J3475; J3480; J3490; J7030; J7042; J7060; Q9963; G0480

== ENCOUNTER 2022-06-03 13:18 | Emergency (ER) | payer MEDICARE, MEDICAID ==
[~2022-06-03] VITALS: Ht 160 cm; Wt 64.0 kg
[~2022-06-03 13:18] MED LIST changes: +ALBU90AE INH; +HYDR-4135 PO; -HYDR-4350 PO; +TRAM50TA3 MT
[2022-06-03 13:46] VITALS: BP 169/64
== END 2022-06-03 16:18 | disposition left against medical advice (07) ==
LOC: ER 13:18
DX: Z53.21 Procedure and treatment not carried out due to patient leaving prior to being seen by health care provider (principal)

== ENCOUNTER 2022-07-10 19:31 | Emergency (ER) | payer MEDICARE, MEDICAID ==
[~2022-07-10] VITALS: Ht 160 cm; Wt 65.0 kg
[2022-07-10 20:00] VITALS: BP 145/99
[2022-07-10 21:55] LABS: BASOPHILS % 0.6 % (0.0-2.0); EOSINOPHILS % 1.8 % (0.0-5.0); HEMATOCRIT. 34.6 % (36.0-48.0); HEMOGLOBIN. 11.6 g/dL (12.0-16.0); LYMPHOCYTES % 9.4 % (20.0-50.0); MEAN CORPUSCULAR HEMOGLOBIN 29.9 pg (28.0-32.0); MEAN CORPUSCULAR VOLUME 89.2 fL (81.0-99.0); MEAN PLATELET VOLUME 7.4 fl (7.4-10.4); MONOCYTES % 8.8 % (2.0-8.0); NEUTROPHILS % 79.4 % (40.0-76.0); PLATELET 261 x1000/uL (130-400); RED BLOOD CELL COUNT 3.88 mill/uL (4.2-5.4)
[2022-07-10 22:05] LABS: CHLORIDE 104 mEq/L (98-107)
[2022-07-10] MEDS ORDERED: ACETAMINOPHEN 325MG TABLET PO ONE (22:15)
[2022-07-10] MEDS ORDERED: TOPUD MT (22:46)
[2022-07-10] MEDS ORDERED: ALBUTEROL (0.083%) 2.5MG/3ML NEB HHN STA (22:50)
[2022-07-10 23:52] LABS: CLARITY URINE CLEAR (CLEAR); COLOR URINE ORANGE (YELLOW); KETONES URINE NEGATIVE (NEGATIVE); LEUKOCYTE ESTERASE URINE TRACE (NEGATIVE); NITRITE URINE NEGATIVE (NEGATIVE); OCCULT BLOOD URINE NEGATIVE (NEGATIVE); PROTEIN URINE 2+ (NEGATIVE); SPECIFIC GRAVITY URINE 1.011 (1.005-1.030); UROBILINOGEN URINE 0.2 E.U./dL (0.2-1.0)
[2022-07-11] MEDS ORDERED: CEPH500C2 MT (20:54)
== END 2022-07-11 00:44 | disposition home or self-care (01) ==
LOC: ER 19:31
DX: R05.9 Cough, unspecified (principal); R50.9 Fever, unspecified; K21.9 Gastro-esophageal reflux disease without esophagitis; J44.9 Chronic obstructive pulmonary disease, unspecified; F41.9 Anxiety disorder, unspecified; I10 Essential (primary) hypertension; Z87.19 Personal history of other diseases of the digestive system; Z20.822 Contact with and (suspected) exposure to COVID-19; Z90.710 Acquired absence of both cervix and uterus; Z91.018 Allergy to other foods; Z88.5 Allergy status to narcotic agent
CPT/HCPCS: 36415; 71045; 76857; 80053; 81003; 83880; 84484; 85025; 87426; 87804; 93005; 94640; 99285; C9803

== ENCOUNTER 2023-03-25 12:08 | Emergency (ER) | payer MEDICARE, MEDICAID ==
[~2023-03-25] VITALS: Ht 154.9 cm; Wt 62.0 kg
[~2023-03-25 12:08] MED LIST changes: +CEPH500C2 MT; +TOPUD MT
[2023-03-25 12:10] VITALS: TEMP 98.8; O2SAT 98
[2023-03-25 12:55] LABS: CLARITY URINE CLOUDY (CLEAR); COLOR URINE BLOODY (YELLOW); GLUCOSE URINE TRACE (NEGATIVE); KETONES URINE 1+ (NEGATIVE); NITRITE URINE POSITIVE (NEGATIVE); OCCULT BLOOD URINE 3+ (NEGATIVE); PROTEIN URINE 3+ (NEGATIVE)
[2023-03-25 12:56] LABS: LEUKOCYTE ESTERASE URINE 2+ (NEGATIVE)
[2023-03-25 12:59] LABS: RBC URINE TNTC /hpf (0-2)
[2023-03-25 13:01] LABS: SQUAMOUS EPITHELIAL CELL URINE RARE /lpf (RARE/1+)
[2023-03-25 13:09] LABS: BACTERIA URINE TRACE; WBC URINE 50-100 /hpf (0-2)
[2023-03-25] MEDS ORDERED: CEFP200T13 MT (13:47)
[2023-03-25 15:13] VITALS: BP 130/83; PULSE 88; RESP 17
== END 2023-03-25 15:57 | disposition home or self-care (01) ==
LOC: ER 12:08
DX: N39.0 Urinary tract infection, site not specified (principal); J06.9 Acute upper respiratory infection, unspecified; I10 Essential (primary) hypertension; J44.1 Chronic obstructive pulmonary disease with (acute) exacerbation; Z91.018 Allergy to other foods; Z88.5 Allergy status to narcotic agent; Z79.899 Other long term (current) drug therapy
CPT/HCPCS: 71046; 81003; 99284

== ENCOUNTER 2023-06-28 15:52 | Emergency (ER) | payer MEDICARE, MEDICAID ==
[~2023-06-28] VITALS: Ht 160 cm; Wt 66.0 kg
[~2023-06-28 15:52] MED LIST changes: +CEFP200T13 MT
[2023-06-28 16:08] VITALS: BP 181/85; PULSE 101; RESP 16; TEMP 98.2; O2SAT 95
[2023-06-28 18:42] LABS: CLARITY URINE CLEAR (CLEAR); COLOR URINE YELLOW (YELLOW); GLUCOSE URINE NEGATIVE (NEGATIVE); KETONES URINE NEGATIVE (NEGATIVE); LEUKOCYTE ESTERASE URINE TRACE (NEGATIVE); NITRITE URINE NEGATIVE (NEGATIVE); OCCULT BLOOD URINE NEGATIVE (NEGATIVE); PH URINE 7.5 (4.5-8.0); PROTEIN URINE 1+ (NEGATIVE); SPECIFIC GRAVITY URINE 1.007 (1.005-1.030)
[2023-06-28 19:13] LABS: BACTERIA URINE NONE SEEN; RBC URINE NONE SEEN /hpf (0-2); SQUAMOUS EPITHELIAL CELL URINE RARE /lpf (RARE/1+)
[2023-06-28] MEDS ORDERED: IBUPROFEN 600MG TABLET PO ONE (19:45)
[2023-06-28] MEDS ORDERED: CEPHALEXIN 250MG CAPSULE PO ONE (19:45)
== END 2023-06-28 21:33 | disposition home or self-care (01) ==
LOC: ER 16:19
DX: N39.0 Urinary tract infection, site not specified (principal); M79.10 Myalgia, unspecified site; D64.9 Anemia, unspecified; F41.9 Anxiety disorder, unspecified; J44.9 Chronic obstructive pulmonary disease, unspecified; K21.9 Gastro-esophageal reflux disease without esophagitis; I10 Essential (primary) hypertension; Z90.710 Acquired absence of both cervix and uterus; Z79.899 Other long term (current) drug therapy
CPT/HCPCS: 81003; 99283

== ENCOUNTER 2024-01-24 18:32 | Emergency (ER) | payer MEDICARE, MEDICAID ==
[~2024-01-24] VITALS: Ht 165.1 cm; Wt 45.0 kg
[~2024-01-24 18:32] MED LIST changes: +ALBU18HF2 PO; -ALBU90AE INH; -ALLO100T PO; +ALLO300T2 PO; -ALPR2TAB2 PO; -AMLO1CAP2 PO; -AMYL1CAP61 PO; +BREZTRI PO; -CEFP200T13 MT; -CEPH500C2 MT; +DEXL60CA18 PO; -DEXL60CA3 PO; -FOLI-43 PO; +HYDR-4009 PO; -HYDR-4135 PO; +LORA-250 PO; -MECL-217 PO; -OMEP20TA23 PO; +SODI45SP7; -TOPUD MT; -TRAM50TA3 MT; -UMEC1DIS IH
[2024-01-24 18:33] VITALS: O2SAT 98
[2024-01-24 18:53] VITALS: TEMP 37.22520
[2024-01-24 19:50] LABS: CHLORIDE 101 mEq/L (98-107); POTASSIUM 4.4 mEq/L (3.5-5.1); SODIUM 129 mEq/L (136-145)
[2024-01-24 19:51] LABS: CARBON DIOXIDE 21 mEq/L (21-32)
[2024-01-24 19:53] LABS: INR 1.1
[2024-01-24 19:56] LABS: CREATININE 0.8 mg/dL (0.6-1.0); GLUCOSE 108 mg/dL (70-105); UREA NITROGEN BLOOD 19 mg/dL (9-23)
[2024-01-24 19:58] LABS: ALANINE AMINOTRANSFERASE 9 IU/L (10-49); ALBUMIN 3.3 g/dL (3.2-4.8); ASPARTATE AMINOTRANSFERASE 13 IU/L (<34); BASOPHILS % 0.9 % (0.0-2.0); EOSINOPHILS % 1.3 % (0.0-5.0); HEMATOCRIT. 26.1 % (36.0-48.0); HEMOGLOBIN. 8.5 g/dL (12.0-16.0); LYMPHOCYTES % 10.1 % (20.0-50.0); MEAN CORPUSCULAR HEMOGLOBIN 29.6 pg (28.0-32.0); MEAN CORPUSCULAR HGB CONC 32.5 g/dL (31.0-37.0); MEAN CORPUSCULAR VOLUME 91.2 fL (81.0-99.0); MEAN PLATELET VOLUME 6.6 fl (7.4-10.4); MONOCYTES % 6.9 % (2.0-8.0); NEUTROPHILS % 80.8 % (40.0-76.0); PHOSPHORUS 1.9 mg/dL (2.5-4.9); PLATELET 346 x1000/uL (130-400); RED BLOOD CELL COUNT 2.86 mill/uL (4.2-5.4); RED CELL DISTRIBUTION WIDTH 18.9 % (11.6-14.6); WHITE BLOOD COUNT 7.2 x1000/uL (4.5-11.0)
[2024-01-24 19:59] LABS: BILIRUBIN TOTAL 0.3 mg/dL (0.1-1.0); PROTEIN TOTAL 5.6 g/dL (6.0-8.3)
[2024-01-24 20:05] LABS: BILIRUBIN DIRECT < 0.1 mg/dL (<=3.0)
[2024-01-24] MEDS: ONDANSETRON HCL 4MG/2ML INJ IV STA (20:27)
[2024-01-24] MEDS: SODIUM CHLORIDE 0.9% 1,000 ML IV ONE (20:27)
[2024-01-24 21:16] LABS: CLARITY URINE CLOUDY (CLEAR); COLOR URINE YELLOW (YELLOW); GLUCOSE URINE NEGATIVE (NEGATIVE); KETONES URINE NEGATIVE (NEGATIVE); LEUKOCYTE ESTERASE URINE 3+ (NEGATIVE); NITRITE URINE NEGATIVE (NEGATIVE); OCCULT BLOOD URINE TRACE (NEGATIVE); PH URINE 7.5 (4.5-8.0); PROTEIN URINE NEGATIVE (NEGATIVE); SPECIFIC GRAVITY URINE 1.005 (1.005-1.030); UROBILINOGEN URINE 0.2 E.U./dL (0.2-1.0)
[2024-01-24 22:33] LABS: WBC URINE TNTC /hpf (0-2)
[2024-01-24 22:34] LABS: BACTERIA URINE 2+; SQUAMOUS EPITHELIAL CELL URINE FEW /lpf (RARE/1+)
[2024-01-24] MEDS ORDERED: CEFP200T14 MT (23:20)
[2024-01-25] MEDS: CEFTRIAXONE 2GM/50ML 50 ML IV ONE (00:11)
[2024-01-25 01:16] VITALS: BP 110/50; PULSE 92; RESP 14; O2SAT 99
== END 2024-01-25 01:17 | disposition home or self-care (01) ==
LOC: ER 18:32
DX: N39.0 Urinary tract infection, site not specified (principal); R19.7 Diarrhea, unspecified; R30.0 Dysuria; D64.9 Anemia, unspecified; F41.9 Anxiety disorder, unspecified; J44.9 Chronic obstructive pulmonary disease, unspecified; K21.9 Gastro-esophageal reflux disease without esophagitis; I10 Essential (primary) hypertension; Z90.710 Acquired absence of both cervix and uterus; Z79.899 Other long term (current) drug therapy; Z20.822 Contact with and (suspected) exposure to COVID-19
CPT/HCPCS: 99285; 74176; 96361; 71045; 96375; 87426; 80076; 80048; 81003; 83880; 83690; 83735; 84100; 85025; 85610; 87086; 87186; 87077; 36415; 96365; J0696; J2405; J7030

== ENCOUNTER 2024-04-24 17:34 | Inpatient (IN) | payer MEDICARE, MEDICAID ==
[~2024-04-24] VITALS: Ht 160 cm; Wt 63.5 kg
[~2024-04-24 17:34] MED LIST changes: +BREZTRI INH; -BREZTRI PO; +CEFP200T14 MT
[2024-04-24 18:38] VITALS: PULSE 107; RESP 22; O2SAT 98
[2024-04-24] MEDS: ALBUTEROL (0.083%) 2.5MG/3ML NEB HHN STA (18:38)
[2024-04-24] MEDS: IPRATROPIUM BROMIDE (0.02%) 0.5MG/2.5ML NEB HHN STA (18:39)
[2024-04-24] MEDS: SODIUM CHLORIDE 0.9% 1,000 ML IV ONE (18:53)
[2024-04-24] MEDS: KETOROLAC 15MG/ML VIAL IV ONE (18:53)
[2024-04-24] MEDS: METHYLPREDNISOLONE SOD SUCC 125MG/2ML (ACT-O-VIAL) IV STA (18:53)
[2024-04-24] MEDS: ONDANSETRON HCL 4MG/2ML INJ IV STA (18:53)
[2024-04-24 19:00] LABS: HEMATOCRIT. 37.5 % (36.0-48.0); HEMOGLOBIN. 11.8 g/dL (12.0-16.0); MEAN CORPUSCULAR HEMOGLOBIN 26.9 pg (28.0-32.0); MEAN CORPUSCULAR HGB CONC 31.4 g/dL (31.0-37.0); MEAN CORPUSCULAR VOLUME 85.7 fL (81.0-99.0); MEAN PLATELET VOLUME 7.1 fl (7.4-10.4); PLATELET 407 x1000/uL (130-400); RED BLOOD CELL COUNT 4.38 mill/uL (4.2-5.4); RED CELL DISTRIBUTION WIDTH 18.1 % (11.6-14.6); WHITE BLOOD COUNT 13.5 x1000/uL (4.5-11.0)
[2024-04-24 19:02] LABS: DIFFERENTIAL COMMENT 1
[2024-04-24 19:09] LABS: INR 1.1; PROTHROMBIN TIME 12.1 sec (9.6-11.0)
[2024-04-24 19:11] LABS: CHLORIDE 98 mEq/L (98-107)
[2024-04-24 19:12] LABS: CARBON DIOXIDE 32 mEq/L (21-32); POTASSIUM 3.4 mEq/L (3.5-5.1); SODIUM 140 mEq/L (136-145)
[2024-04-24 19:13] LABS: CALCIUM 9.9 mg/dL (8.7-10.4)
[2024-04-24 19:17] LABS: CREATININE 1.2 mg/dL (0.6-1.0); GLUCOSE 160 mg/dL (70-105)
[2024-04-24 19:18] LABS: UREA NITROGEN BLOOD 30 mg/dL (9-23)
[2024-04-24 19:19] LABS: ALANINE AMINOTRANSFERASE 9 IU/L (10-49); ALBUMIN 4.6 g/dL (3.2-4.8); ASPARTATE AMINOTRANSFERASE 18 IU/L (<34)
[2024-04-24 19:20] LABS: BILIRUBIN DIRECT 0.1 mg/dL (<=3.0); BILIRUBIN TOTAL 0.5 mg/dL (0.1-1.0); TROPONIN I HIGH SENSITIVITY 17 ng/L (3.0-34)
[2024-04-24 20:14] LABS: ANISOCYTOSIS 1+; PLATELET ESTIMATE INCREASED
[2024-04-24] MEDS ORDERED: DOCUSATE SODIUM 100MG CAPSULE PO PRN (21:15)
[2024-04-24] MEDS ORDERED: CLONIDINE 0.1MG TABLET PO PRN (21:15)
[2024-04-24] MEDS ORDERED: ONDANSETRON HCL 4MG/2ML INJ IV PRN (21:15)
[2024-04-24] MEDS ORDERED: MAGNESIUM/ALUMINUM HYDROXIDE/SIMETHICONE 30ML UDC PO PRN (21:15)
[2024-04-24] MEDS ORDERED: ACETAMINOPHEN 325MG TABLET PO PRN (21:15)
[2024-04-24] MEDS ORDERED: IPRATROPIUM/ALBUTEROL 0.5-3(2.5)MG/3ML NEB HHN PRN (21:15)
[2024-04-24 21:57] LABS: IRON 39 ug/dL (50-170)
[2024-04-24 22:00] LABS: TOTAL IRON BINDING CAPACITY 398 ug/dl (250-425)
[2024-04-24 22:02] LABS: VITAMIN B12 SERUM 415 pg/mL (211-911)
[2024-04-24 22:03] LABS: FERRITIN 18 ng/mL (10-291)
[2024-04-24] MEDS: SODIUM CHLORIDE 0.45% 1,000 ML IV SCH (22:07)
[2024-04-24] MEDS: ACETAMINOPHEN 325MG TABLET PO PRN (22:07)
[2024-04-24] MEDS: METHYLPREDNISOLONE SOD SUCC 40MG/ML (ACT-O-VIAL) IV SCH (22:13)
[2024-04-24 23:27] LABS: BG BASE EXCESS 7.6 mmol/L (-2.0-3.0); BG CARBOXYHEMOGLOBIN 2.2 % (0.5-1.5); BG DEOXYHEMOGLOBIN 5.1 % (0.0-5.0); BG FRACTION INSPIRED OXYGEN 40; BG HCO3 ACT 31.7 mmol/L (21.0-28.0); BG OXYGEN SATURATION 94.8 % (94.0-98.0); BG OXYHEMOGLOBIN 92.7 % (94.0-98.0); BG PCO2 42.6 mmHg (32.0-45.0); BG PH 7.489 (7.350-7.450); BG PO2 95.2 mmHg (83.0-108.0); BG SAMPLE SITE RIGHT BRACHIAL; BG TOTAL HEMOGLOBIN 9.8 g/dL (12.0-16.0); BG VENT MODE NASAL CANNULA
[2024-04-24] MEDS: IPRATROPIUM BROMIDE (0.02%) 0.5MG/2.5ML NEB HHN SCH (23:50)
[2024-04-24] MEDS: CEFTRIAXONE 1GM/50ML 50 ML IV SCH (23:51)
[2024-04-24 23:54] VITALS: PULSE 88; RESP 20; O2SAT 97
[2024-04-24] MEDS: AZITHROMYCIN 500MG/250ML 250 ML IV SCH (23:57)
[2024-04-25 01:23] LABS: CLARITY URINE CLEAR (CLEAR); COLOR URINE DARK YELLOW (YELLOW); GLUCOSE URINE NEGATIVE (NEGATIVE); KETONES URINE TRACE (NEGATIVE); LEUKOCYTE ESTERASE URINE NEGATIVE (NEGATIVE); NITRITE URINE POSITIVE (NEGATIVE); OCCULT BLOOD URINE NEGATIVE (NEGATIVE); PH URINE 6.5 (4.5-8.0); PROTEIN URINE 2+ (NEGATIVE); SPECIFIC GRAVITY URINE 1.013 (1.005-1.030)
[2024-04-25 01:33] LABS: *AMPHETAMINES SCREEN URINE NEGATIVE (NEGATIVE); *BARBITURATES SCREEN URINE NEGATIVE (NEGATIVE); *BENZODIAZEPINES SCREEN URINE NEGATIVE (NEGATIVE)
[2024-04-25 01:34] LABS: *COCAINE SCREEN URINE NEGATIVE (NEGATIVE); CANNABINOID URINE SCREEN NEGATIVE (NEGATIVE); ECSTASY MDMA SCREEN URINE NEGATIVE (NEGATIVE); METHADONE URINE SCREEN NEGATIVE (NEGATIVE); OPIATES URINE SCREEN PRESUMPTIVE POSITIVE (NEGATIVE); PHENCYCLIDINE URINE SCREEN NEGATIVE (NEGATIVE)
[2024-04-25 02:55] LABS: RBC URINE 0-2 /hpf (0-2); SQUAMOUS EPITHELIAL CELL URINE NONE SEEN /lpf (RARE/1+)
[2024-04-25 02:56] LABS: WBC URINE 0-2 /hpf (0-2)
[2024-04-25 03:03] LABS: BACTERIA URINE TRACE
[2024-04-25 03:44] LABS: CHLORIDE 104 mEq/L (98-107); POTASSIUM 3.7 mEq/L (3.5-5.1); SODIUM 138 mEq/L (136-145)
[2024-04-25 03:45] LABS: CALCIUM 8.5 mg/dL (8.7-10.4); CARBON DIOXIDE 29 mEq/L (21-32)
[2024-04-25 03:50] LABS: CREATININE 1.2 mg/dL (0.6-1.0); GLUCOSE 207 mg/dL (70-105); TRIGLYCERIDE 72 mg/dL (0-150); UREA NITROGEN BLOOD 33 mg/dL (9-23)
[2024-04-25 03:51] LABS: LDL CHOLESTEROL 79 mg/dL (5-100)
[2024-04-25 03:52] LABS: CHOLESTEROL 142 mg/dL (<200); HDL CHOLESTEROL 47 mg/dL (>65); PHOSPHORUS 3.8 mg/dL (2.5-4.9)
[2024-04-25 03:55] LABS: T4 FREE 1.39 ng/dL (0.89-1.76); THYROID STIMULATING HORMONE 0.49 uIU/mL (0.55-4.78)
[2024-04-25 04:28] LABS: HEMATOCRIT. 30.4 % (36.0-48.0); HEMOGLOBIN. 9.8 g/dL (12.0-16.0); MEAN CORPUSCULAR HEMOGLOBIN 28.1 pg (28.0-32.0); MEAN CORPUSCULAR HGB CONC 32.3 g/dL (31.0-37.0); MEAN PLATELET VOLUME 7.1 fl (7.4-10.4); PLATELET 317 x1000/uL (130-400); RED CELL DISTRIBUTION WIDTH 18.5 % (11.6-14.6); WHITE BLOOD COUNT 6.2 x1000/uL (4.5-11.0)
[2024-04-25 04:35] VITALS: PULSE 93; RESP 20; O2SAT 98
[2024-04-25 04:47] LABS: DIFFERENTIAL COMMENT 1
[2024-04-25 05:29] LABS: CHLORIDE 105 mEq/L (98-107); SODIUM 140 mEq/L (136-145)
[2024-04-25 05:30] LABS: CALCIUM 8.4 mg/dL (8.7-10.4); CARBON DIOXIDE 29 mEq/L (21-32)
[2024-04-25 05:35] LABS: CREATININE 1.2 mg/dL (0.6-1.0); GLUCOSE 198 mg/dL (70-105); UREA NITROGEN BLOOD 35 mg/dL (9-23)
[2024-04-25 05:37] LABS: ALANINE AMINOTRANSFERASE < 7 IU/L (10-49); ALBUMIN 3.5 g/dL (3.2-4.8); ASPARTATE AMINOTRANSFERASE 13 IU/L (<34); BILIRUBIN TOTAL 0.2 mg/dL (0.1-1.0)
[2024-04-25 06:43] LABS: PLATELET ESTIMATE NORMAL
[2024-04-25 08:30] VITALS: PULSE 74; RESP 11
[2024-04-25] MEDS: IPRATROPIUM/ALBUTEROL 0.5-3(2.5)MG/3ML NEB HHN SCH (08:33)
[2024-04-25] MEDS: AMLODIPINE 10MG TABLET PO SCH (09:00)
[2024-04-25] MEDS: APIXABAN 2.5 MG TABLET PO SCH (09:00)
[2024-04-25] MEDS: GUAIFENESIN 200MG/10ML SUGAR FREE UDC PO PRN (11:52)
[2024-04-25 13:34] VITALS: PULSE 86; RESP 16
[2024-04-25] MEDS ORDERED: AMLO-138 PO (14:17)
[2024-04-25] MEDS ORDERED: LORA2TAB95 MT (14:17)
[2024-04-25] MEDS ORDERED: DIPH50CA38 PO (14:17)
[2024-04-25] MEDS ORDERED: ALPR2TAB97 PO (14:26)
[2024-04-25 18:01] VITALS: BP 157/78; PULSE 64; RESP 16; TEMP 37.0852
[2024-04-25 20:00] VITALS: BP 118/70; PULSE 92; RESP 20; TEMP 36.83628; O2SAT 95
[2024-04-25 20:03] VITALS: PULSE 88; RESP 18; O2SAT 96
[2024-04-25] MEDS: KETOROLAC 30MG/ML VIAL IV PRN (21:33)
[2024-04-26] VITALS: BP 112/73; PULSE 93; RESP 20; TEMP 37.00296; O2SAT 95
[2024-04-26 04:00] VITALS: BP 111/75; PULSE 77; RESP 20; TEMP 36.61404; O2SAT 99
[2024-04-26 08:00] VITALS: BP 124/65; PULSE 90; RESP 18; TEMP 36.55848; O2SAT 99
[2024-04-26 08:01] LABS: HEMATOCRIT. 30.1 % (36.0-48.0); HEMOGLOBIN. 9.6 g/dL (12.0-16.0); MEAN CORPUSCULAR HEMOGLOBIN 27.8 pg (28.0-32.0); MEAN CORPUSCULAR HGB CONC 31.8 g/dL (31.0-37.0); MEAN CORPUSCULAR VOLUME 87.5 fL (81.0-99.0); MEAN PLATELET VOLUME 7.4 fl (7.4-10.4); PLATELET 304 x1000/uL (130-400); RED BLOOD CELL COUNT 3.45 mill/uL (4.2-5.4); RED CELL DISTRIBUTION WIDTH 18.3 % (11.6-14.6); WHITE BLOOD COUNT 9.6 x1000/uL (4.5-11.0)
[2024-04-26 08:10] LABS: DIFFERENTIAL COMMENT 1
[2024-04-26 08:20] VITALS: PULSE 80; RESP 16; O2SAT 98
[2024-04-26] MEDS: PREDNISONE 20MG TABLET PO SCH (09:58)
[2024-04-26] MEDS ORDERED: SULF1TAB48 MT ×2 (11:17→16:05)
[2024-04-26 12:00] VITALS: BP 122/77; PULSE 95; RESP 18; TEMP 36.9474; TEMP 36.94740; O2SAT 97
[2024-04-26 13:02] VITALS: PULSE 89; RESP 16; O2SAT 98
[2024-04-26 15:49] LABS: PLATELET ESTIMATE NORMAL
== END 2024-04-26 13:40 | disposition home or self-care (01) | DRG 871 ==
LOC: ER 17:34 → EDBEDREQ 19:30 → 5WST 20:25 → EDBEDREQ 20:27
PROVIDERS: ADMIT Internal Medicine; ATTEND Internal Medicine
DX: A41.9 Sepsis, unspecified organism (principal); J18.9 Pneumonia, unspecified organism; J44.1 Chronic obstructive pulmonary disease with (acute) exacerbation; J98.11 Atelectasis; N17.9 Acute kidney failure, unspecified; N39.0 Urinary tract infection, site not specified; K56.609 Unspecified intestinal obstruction, unspecified as to partial versus complete obstruction; F41.9 Anxiety disorder, unspecified; K21.9 Gastro-esophageal reflux disease without esophagitis; E87.6 Hypokalemia; D64.9 Anemia, unspecified; N32.89 Other specified disorders of bladder; I10 Essential (primary) hypertension; K83.8 Other specified diseases of biliary tract; Z86.718 Personal history of other venous thrombosis and embolism; Z87.891 Personal history of nicotine dependence; Z87.440 Personal history of urinary (tract) infections; Z88.5 Allergy status to narcotic agent; Z90.710 Acquired absence of both cervix and uterus; Z99.81 Dependence on supplemental oxygen; Z79.01 Long term (current) use of anticoagulants; Z79.899 Other long term (current) drug therapy
CPT/HCPCS: 36415; 36600; 71045; 74018; 74176; 80048; 80053; 80061; 80076; 80305; 81003; 82375; 82607; 82728; 82746; 82805; 83540; 83550; 83605; 83735; 83880; 84100; 84145; 84439; 84443; 84484; 85025; 87420; 87804; 92610; 93005; 93970; 94003; 94640; 97166; 97535; 99285; J0456; J0696; J1885; J2405; J2919; J2920; J7030; J7512

== ENCOUNTER 2024-08-08 20:31 | Emergency (ER) | payer MEDICARE, OTHER ==
[~2024-08-08] VITALS: Ht 160 cm; Wt 58.0 kg
[~2024-08-08 20:31] MED LIST changes: +ALPR2TAB97 PO; +AMLO-138 PO; -CEFP200T14 MT; -DEXL60CA18 PO; +DIPH50CA38 PO; -LORA-250 PO; +LORA2TAB95 MT; -SODI45SP7; +SULF1TAB48 MT
[2024-08-08 20:34] VITALS: BP 103/53; TEMP 37
[2024-08-08 23:43] VITALS: PULSE 72; RESP 18; O2SAT 98
[2024-08-08] MEDS: ALBUTEROL (0.083%) 2.5MG/3ML NEB HHN STA (23:43)
[2024-08-08] MEDS: IPRATROPIUM BROMIDE (0.02%) 0.5MG/2.5ML NEB HHN STA (23:43)
[2024-08-09] MEDS: PREDNISONE 20MG TABLET PO STA (00:02)
[2024-08-09] MEDS ORDERED: AMOX1TAB16 MT (00:25)
[2024-08-09] MEDS ORDERED: ALBU18HF2 IH (00:26)
[2024-08-09] MEDS ORDERED: P50 MT (00:26)
== END 2024-08-09 01:02 | disposition home or self-care (01) ==
LOC: ER 20:31
DX: J32.9 Chronic sinusitis, unspecified (principal); J44.1 Chronic obstructive pulmonary disease with (acute) exacerbation; F41.9 Anxiety disorder, unspecified; I10 Essential (primary) hypertension; Z87.440 Personal history of urinary (tract) infections; Z79.899 Other long term (current) drug therapy; Z87.891 Personal history of nicotine dependence; Z90.710 Acquired absence of both cervix and uterus; Z88.5 Allergy status to narcotic agent
CPT/HCPCS: 99283; 71045; J7512